=== PATIENT | male | born 1975 | race Caucasian/White ===

== ENCOUNTER 2024-12-21 23:28 | Emergency (ER) | payer MEDICARE, OTHER ==
[~2024-12-21] VITALS: Ht 203.2 cm; Wt 125.2 kg
[~2024-12-21 23:28] MED LIST: ASPIRIN CHEW81 MG PO; COQ-10100 MG PO; HYDROCODON-ACE1 EA11 PO; PROAIR HFA INH8.5 GM INH; SIMVASTATIN40 MG PO; TRAZODONE HCL50 MG PO; Z.0.FLONASE16 GM; Z.0.VICODIN 5-5001 E; Z.0.ZOLOFT100 MG; ZOLOFT100 MG PO
[2024-12-21 23:40] VITALS: TEMP 97.8
[2024-12-21] MEDS ORDERED: SODIUM CHLORIDE FLUSH 10 ML SYR IV PRN (23:45)
[2024-12-21 23:55] LABS: BASOPHILS % 1.3 % (0.0-1.0); EOSINOPHILS % 7.3 % (0.0-6.0); LYMPHOCYTES % 29.6 % (18.0-39.1); MONOCYTES % 17.8 % (4.4-11.3); NEUTROPHILS % 43.5 % (38.7-80.0); RED CELL DISTRIBUTION WIDTH 12.8 % (11.7-14.4)
[2024-12-22 00:08] LABS: INR 0.96
[2024-12-22 00:15] LABS: EST GLOMERULAR FILTRATION RATE 99.0 ML/MIN (>=60)
[2024-12-22 00:24] VITALS: PULSE 83; RESP 18
[2024-12-22] MEDS ORDERED: IOPAMIDOL 370 MG/ML 100 ML INFUS..BTL INJ ONE (00:33)
[2024-12-22 01:46] VITALS: BP 135/90; PULSE 88; RESP 17; TEMP 98; O2SAT 97
== END 2024-12-22 01:47 | disposition home or self-care (01) ==
LOC: ER 23:34
DX: R04.2 Hemoptysis (principal); I10 Essential (primary) hypertension; E78.5 Hyperlipidemia, unspecified; K21.9 Gastro-esophageal reflux disease without esophagitis; I25.10 Atherosclerotic heart disease of native coronary artery without angina pectoris; I69.354 Hemiplegia and hemiparesis following cerebral infarction affecting left non-dominant side; I25.2 Old myocardial infarction; Z86.718 Personal history of other venous thrombosis and embolism
CPT/HCPCS: 36415; 71260; 80053; 80320; 84484; 85025; 85610; 85730; 94760; 99284; Q9967